=== PATIENT | male | born 1975 | race Caucasian/White ===

== ENCOUNTER 2020-04-15 08:41 | Emergency (ER) | payer BC ==
[2020-04-15] MEDS ORDERED: Ketorolac 60 MG/2 ML SDV IM STA (09:15)
[2020-04-15] MEDS ORDERED: Ketorolac 30 MG/ML SDV IVPUSH STA (09:18)
--- NOTE | 2020-04-15 10:01 | CR ---
INDICATION: Chest pain. CHEST, ONE VIEW: An AP upright portable view of the chest was obtained 04/15/20 - no comparison. Overlying EKG leads are noted. The heart does not appear enlarged. The aorta is mildly tortuous. A definite active infiltrate or effusion was not identified. Apical pleural thickening is noted compatible with scarring right greater than left. Evidence of exogenous obesity is noted. IMPRESSION: No acute process. MTDD
--- NOTE | 2020-04-15 10:21 | EDM.PDOC ---
ED HPI GENERAL MEDICAL PROBLEM - General Chief Complaint: Chest Pain Stated Complaint: CHEST PAIN Time Seen by Provider: 04/15/20 09:00 Source of Information: Reports: Patient History Limitations: Reports: No Limitations - History of Present Illness INITIAL COMMENTS - FREE TEXT/NARRATIVE: Patient presented to the because of pleuritic chest pain for 3 days. The pain is sharp,3/10, radiating to both arms. There is no nause,dyspnea, or diaphoresis. There is no fever, chills, cough/cold symptoms. left side chest Pain Score (Numeric/FACES): 3 - Related Data Allergies Allergy/AdvReac Type Severity Reaction Status Date / Time No Known Allergies Allergy Verified 04/15/20 09:02 Home Meds: Home Meds NK [No Known Home Meds] 02/28/18 [History] Past Medical History - Past Health History Medical/Surgical History: Denies Medical/Surgical History Social & Family History - Family History Family Medical History: No Pertinent Family History - Tobacco Use Tobacco Use Status *Q: Current Every Day Tobacco User Years of Tobacco use: 20 Packs/Tins Daily: 0.5 - Caffeine Use Caffeine Use: Reports: Coffee - Alcohol Use Days Per Week of Alcohol Use: 4 Number of Drinks Per Day: 1 Total Drinks Per Week: 4 - Recreational Drug Use Recreational Drug Use: No ED ROS GENERAL - Review of Systems Review Of Systems: See Below Constitutional: Reports: No Symptoms HEENT: Reports: No Symptoms Respiratory: Reports: No Symptoms Cardiovascular: Reports: Chest Pain Endocrine: Reports: No Symptoms GI/Abdominal: Reports: No Symptoms : Reports: No Symptoms Musculoskeletal: Reports: No Symptoms Skin: Reports: No Symptoms Neurological: Reports: No Symptoms Psychiatric: Reports: No Symptoms Hematologic/Lymphatic: Reports: No Symptoms Immunologic: Reports: No Symptoms ED EXAM, GENERAL - Physical Exam Exam: See Below Exam Limited By: No Limitations General Appearance: Alert, No Apparent Distress Ears: Normal External Exam, Normal Canal Nose: Normal Inspection, Normal Mucosa, No Blood Throat/Mouth: Normal Inspection, Normal Lips Head: Atraumatic, Normocephalic Neck: Normal Inspection, Supple, Non-Tender, Full Range of Motion Respiratory/Chest: No Respiratory Distress, Lungs Clear, Normal Breath Sounds Cardiovascular: Normal Peripheral Pulses, Regular Rate, Rhythm, No Edema, No Gallop, No JVD, No Murmur, No Rub GI/Abdominal: Normal Bowel Sounds, Soft, Non-Tender, No Organomegaly, No Di stention, No Abnormal Bruit Back Exam: Normal Inspection, Full Range of Motion Extremities: Normal Inspection, Normal Range of Motion, Non-Tender, No Pedal Edema, Normal Capillary Refill Neurological: Alert, Oriented, CN II-XII Intact, Normal Cognition, Normal Gait, Normal Reflexes, No Motor/Sensory Deficits Course - Vital Signs Text/Narrative:: Labs/EKG/CXR result was discussed with patient Patient took ASA 325 mg before his ER visit Toradol 30 mg IV x1 Last Recorded V/S: Last Vital Signs Temp 36.8 C 04/15/20 08:41 Pulse 84 04/15/20 08:41 Resp 15 04/15/20 08:41 BP 168/95 H 04/15/20 08:41 Pulse Ox 100 04/15/20 08:41 - Orders/Labs/Meds Orders: Active Orders 24 hr Category Date Time Status EKG Documentation Completion [RC] ASDIRECTED Care 04/15/20 09:12 Active EKG 12 Lead [EK] Routine Ther 04/15/20 09:11 Ordered Labs: Laboratory Tests 04/15/20 04/15/20 04/15/20 Range/Units 09:35 09:35 09:35 WBC 5.7 (3.2-10.1) x10-3/uL RBC 4.93 (3.90-5.90) x10(6)uL Hgb 15.2 (12.9-17.7) g/dL Hct 45.9 (38.3-50.1) % MCV 93.0 (80.8-98.7) fL MCH 30.7 (27.0-33.3) pg MCHC 33.1 (28.7-35.3) g/dL RDW 13.6 (12.4-15.0) % Plt Count 259 (117-477) x10(3)uL MPV 7.5 (6.7-11.0) fL Neut % (Auto) 73.1 H (40.3-71.8) % Lymph % (Auto) 19.9 (15.8-45.3) % [place] % (Auto) 6.2 (5.5-15.2) % Eos % (Auto) 0.4 (0.1-6.8) % Baso % (Auto) 0.4 (0.3-3.8) % Neut # (Auto) 4.2 (1.7-6.9) x10-3/uL Lymph # (Auto) 1.1 (0.5-4.5) x10-3/uL [place] # (Auto) 0.4 (0.0-1.2) x10-3/uL Eos # (Auto) 0.0 (0.0-0.6) x10-3/uL Baso # (Auto) 0.0 (0.0-0.3) x10-3/uL D-Dimer, Quantitative < 0.19 (0.0-0.59) mg/LFEU Sodium 136 (135-145) mmol/L Potassium 4.0 (3.5-5.3) mmol/L Chloride 100 (100-110) mmol/L Carbon Dioxide 26 (21-32) mmol/L BUN 17 (7-18) mg/dL Creatinine 1.0 (0.70-1.30) mg/dL Est Cr Clr Drug Dosing 103.47 mL/min Estimated GFR (MDRD) > 60 (>60) BUN/Creatinine Ratio 17.0 (9-20) Glucose 109 (80-116) mg/dL Calcium 8.6 (8.6-10.2) mg/dL Total Bilirubin 0.5 (0.1-1.3) mg/dL AST 14 (5-25) IU/L ALT 29 (12-36) U/L Alkaline Phosphatase 63 (56-112) IU/L Troponin I (4.0-60.3) pg/mL Total Protein 7.3 (6.0-8.0) g/dL Albumin 4.0 (3.5-5.2) g/dL Globulin 3.3 g/dL Albumin/Globulin Ratio 1.2 04/15/20 Range/Units 09:35 WBC (3.2-10.1) x10-3/uL RBC (3.90-5.90) x10(6)uL Hgb (12.9-17.7) g/dL Hct (38.3-50.1) % MCV (80.8-98.7) fL MCH (27.0-33.3) pg MCHC (28.7-35.3) g/dL RDW (12.4-15.0) % Plt Count (117-477) x10(3)uL MPV (6.7-11.0) fL Neut % (Auto) (40.3-71.8) % Lymph % (Auto) (15.8-45.3) % [place] % (Auto) (5.5-15.2) % Eos % (Auto) (0.1-6.8) % Baso % (Auto) (0.3-3.8) % Neut # (Auto) (1.7-6.9) x10-3/uL Lymph # (Auto) (0.5-4.5) x10-3/uL [place] # (Auto) (0.0-1.2) x10-3/uL Eos # (Auto) (0.0-0.6) x10-3/uL Baso # (Auto) (0.0-0.3) x10-3/uL D-Dimer, Quantitative (0.0-0.59) mg/LFEU Sodium (135-145) mmol/L Potassium (3.5-5.3) mmol/L Chloride (100-110) mmol/L Carbon Dioxide (21-32) mmol/L BUN (7-18) mg/dL Creatinine (0.70-1.30) mg/dL Est Cr Clr Drug Dosing mL/min Estimated GFR (MDRD) (>60) BUN/Creatinine Ratio (9-20) Glucose (80-116) mg/dL Calcium (8.6-10.2) mg/dL Total Bilirubin (0.1-1.3) mg/dL AST (5-25) IU/L ALT (12-36) U/L Alkaline Phosphatase (56-112) IU/L Troponin I 4.0 (4.0-60.3) pg/mL Total Protein (6.0-8.0) g/dL Albumin (3.5-5.2) g/dL Globulin g/dL Albumin/Globulin Ratio Meds: Medications Discontinued Medications Generic Name Dose Route Start Last Admin Trade Name Freq PRN Reason Stop Dose Admin Ketorolac Tromethamine 60 mg 04/15/20 09:15 04/15/20 09:31 Toradol IM 04/15/20 09:16 Not Given NOW STA Ketorolac Tromethamine 30 mg 04/15/20 09:18 04/15/20 09:28 Toradol IVPUSH 04/15/20 09:19 30 mg NOW STA Administration Departure - Departure Time of Disposition: 10:20 Disposition: Home, Self-Care 01 Condition: Good Clinical Impression: Atypical chest pain Instructions: Nonspecific Chest Pain, Adult, [id number] Referrals: Jalen Pickett, [Primary Care Provider] - Forms: ED Department Discharge Additional Instructions: Please read discharge instructions on atypical chest pain Take ibuprofen 800 mg with tylenol 1000 mg every 8 hours as needed for pain Follow up if your chest pain persist Sepsis Event Note (ED) - Evaluation Sepsis Screening Result: No Definite Risk - Focused Exam Vital Signs: Vital Signs Temp Pulse Resp BP Pulse Ox 04/15/20 08:41 36.8 C 84 15 168/95 H 100 - My Orders Last 24 Hours: My Active Orders 04/15/20 09:11 EKG 12 Lead [EK] Routine 04/15/20 09:12 EKG Documentation Completion [RC] ASDIRECTED - Assessment/Plan Last 24 Hours: My Active Orders 04/15/20 09:11 EKG 12 Lead [EK] Routine 04/15/20 09:12 EKG Documentation Completion [RC] ASDIRECTED
== END 2020-04-15 10:25 | disposition home or self-care (01) ==
LOC: FB.ED 08:41
DX: R07.89 Other chest pain (principal); Z72.0 Tobacco use
CPT/HCPCS: 36415; 71045; 80053; 84484; 85025; 85379; 93005; 96374; 99284; J1885

== ENCOUNTER 2021-04-08 05:59 | Emergency (ER) | payer BC ==
[2021-04-08 08:27] VITALS: BP 133/99; PULSE 88
== END 2021-04-08 08:15 | disposition home or self-care (01) ==
LOC: FB.ED 05:59
DX: R00.2 Palpitations (principal); R94.31 Abnormal electrocardiogram [ECG] [EKG]; I10 Essential (primary) hypertension; Z79.899 Other long term (current) drug therapy
CPT/HCPCS: 36415; 71046; 80053; 81001; 83735; 83880; 84443; 84484; 85025; 86140; 93005; 99285-25

== ENCOUNTER 2021-10-22 06:57 | Day surgery (SDC) | payer BC ==
[2021-10-22] MEDS ORDERED: Propofol 200 MG/20 ML SDV IV ONE (06:58)
[2021-10-22] MEDS ORDERED: Lidocaine 2% Viscous Solution 15 ML UD PO ONE (06:58)
[2021-10-22] MEDS ORDERED: Lactated Ringers 1,000 ML IV SCH (07:00)
[2021-10-22] MEDS ORDERED: Sodium Chloride 0.9% 10 ML Syringe FLUSH PRN (07:00)
[2021-10-22] MEDS ORDERED: Lidocaine 2% Viscous Solution 15 ML UD ONE (08:11)
== END 2021-10-22 09:15 | disposition home or self-care (01) ==
LOC: FB.SDS 06:57
PROVIDERS: ATTEND Surgery
DX: K31.89 Other diseases of stomach and duodenum (principal); K20.90 Esophagitis, unspecified without bleeding; K25.9 Gastric ulcer, unspecified as acute or chronic, without hemorrhage or perforation; Z79.899 Other long term (current) drug therapy; Z87.891 Personal history of nicotine dependence
CPT/HCPCS: 00731-QZ; 88305; A9270-GY; J2704; J7120

== ENCOUNTER → 2022-01-14 | Day surgery (SDC) | payer BC ==
[~2022-01-14] MED LIST: Lactated Ringers 1,000 ML IV SCH; Propofol 200 MG/20 ML SDV IV ONE; Sodium Chloride 0.9% 10 ML Syringe FLUSH PRN
== END ==
LOC: FB.SDS 08:07
PROVIDERS: ATTEND Surgery
DX: Z12.11 Encounter for screening for malignant neoplasm of colon (principal); K63.5 Polyp of colon; K62.1 Rectal polyp; Z79.899 Other long term (current) drug therapy; Z87.891 Personal history of nicotine dependence
CPT/HCPCS: 00812-QZ; 88305; J2704